=== PATIENT | male | born 1945 | race Caucasian/White ===

== ENCOUNTER 2016-11-19 10:16 | Day surgery (SDC) | payer MEDICARE, OTHER ==
[2016-11-19] MEDS ORDERED: FLEET ENEMA PR ONE (11:20)
[2016-11-19] MEDS ORDERED: ALBUTEROL NEB SOL 2.5MG/3ML 1 VIAL SOL ONE (11:27)
[2016-11-19] MEDS ORDERED: MORPHINE SULFATE 10 MG/ML SOL ONE (13:17)
[2016-11-19 13:29] VITALS: PULSE 90
[2016-11-19 13:37] VITALS: O2SAT 93
[2016-11-19 13:59] VITALS: BP 164/66; RESP 18; TEMP 97.8
== END 2016-11-19 15:20 | disposition home or self-care (01) | DRG 812 ==
LOC: SURG 10:16
PROVIDERS: ATTEND Surgery
DX: D50.9 Iron deficiency anemia, unspecified (principal); C18.3 Malignant neoplasm of hepatic flexure; K57.30 Diverticulosis of large intestine without perforation or abscess without bleeding
CPT/HCPCS: 71260; 74177; 99001; J2001; J2270; J7603; Q9967; J2704